=== PATIENT | female | born 1990 | race Caucasian/White ===

== ENCOUNTER 2016-07-17 19:29 | Emergency (ER) | payer SELFPAY ==
[~2016-07-17] VITALS: Wt 68.2 kg
[2016-07-17] MEDS ORDERED: ALLEGRA-D TABLE1 TAB PO (19:38)
[2016-07-17] MEDS ORDERED: FLONASEALLERGY NS (19:39)
[2016-07-17 19:40] VITALS: BP 119/69; TEMP 98.5
[2016-07-17 20:56] VITALS: PULSE 90
== END 2016-07-17 20:57 | disposition home or self-care (01) ==
LOC: COL.ER 19:29
DX: S80.12XA Contusion of left lower leg, initial encounter (principal); W22.8XXA Striking against or struck by other objects, initial encounter; F17.210 Nicotine dependence, cigarettes, uncomplicated

== ENCOUNTER 2018-07-12 16:42 | Emergency (ER) | payer OTHER ==
[~2018-07-12] VITALS: Ht 157.5 cm; Wt 77.3 kg
[~2018-07-12 16:42] MED LIST: ALLEGRA-D TABLE1 TAB PO; FLONASEALLERGY NS
[2018-07-12 16:47] VITALS: BP 119/77; TEMP 98.3
[2018-07-12] MEDS ORDERED: ELAVIL100 MG PO (17:19)
[2018-07-12] MEDS ORDERED: AMOXICILLIN 8751 TAB PO (17:26)
[2018-07-12 17:40] VITALS: PULSE 98
== END 2018-07-12 17:40 | disposition home or self-care (01) ==
LOC: COL.ER 16:42
DX: S61.531A Puncture wound without foreign body of right wrist, initial encounter (principal); Z87.891 Personal history of nicotine dependence; Z88.2 Allergy status to sulfonamides; Z88.0 Allergy status to penicillin; W54.0XXA Bitten by dog, initial encounter; Y92.89 Other specified places as the place of occurrence of the external cause

== ENCOUNTER 2018-07-18 08:06 | Outpatient (RCR) | payer OTHER ==
[~2018-07-18 08:06] MED LIST changes: +AMOXICILLIN 8751 TAB PO; +ELAVIL100 MG PO
== END 2018-08-10 10:19 ==
LOC: WSOH 08:06
DX: S61.551D Open bite of right wrist, subsequent encounter (principal)

== ENCOUNTER → 2019-04-02 | Outpatient (CLI) | payer OTHER | LOC: MC.RAD 13:56 | DX: N63.20 Unspecified lump in the left breast, unspecified quadrant (principal) ==

== ENCOUNTER → 2019-11-12 | Outpatient (CLI) | payer OTHER | LOC: MC.RAD 10:18 | DX: N63.20 Unspecified lump in the left breast, unspecified quadrant (principal); N60.02 Solitary cyst of left breast ==

== ENCOUNTER 2021-05-01 13:14 | Emergency (ER) | payer SELFPAY ==
[~2021-05-01] VITALS: Ht 157.5 cm; Wt 80.9 kg
[2021-05-01 13:39] VITALS: BP 136/77; TEMP 98.7
[2021-05-01] MEDS ORDERED: ZOFRAN ODT4 MG PO (14:30)
[2021-05-01 14:40] VITALS: PULSE 75
== END 2021-05-01 14:40 | disposition home or self-care (01) ==
LOC: COL.ER 13:14
DX: S06.0X0A Concussion without loss of consciousness, initial encounter (principal); W01.198A Fall on same level from slipping, tripping and stumbling with subsequent striking against other object, initial encounter